=== PATIENT | female | born 1955 | race Caucasian/White ===

== ENCOUNTER 2019-02-10 10:39 | Day surgery (SDC) | payer BC ==
[~2019-02-10 10:39] MED LIST: ACETAMINOPHEN 1,000 MG/100 ML BTL IVPB ONE; CEFAZOLIN 2 Gram 2 GM/50 ML BAG IVPB ONE
[2019-02-10] MEDS ORDERED: NEOSTIGMINE 1 MG/1 ML,10ML VIAL IV ONE (10:40)
[2019-02-10] MEDS ORDERED: SEVOFLURANE 250 ML INH ONE (10:40)
[2019-02-10] MEDS ORDERED: ROCURONIUM BROMIDE 50MG/5ML VIAL IV ONE (10:40)
[2019-02-10] MEDS ORDERED: LIDOCAINE 2% MDV (20MG/ML) 20ML VIAL IV ONE (10:40)
[2019-02-10] MEDS ORDERED: MIDAZOLAM HCL 2MG/2ML VIAL IV ONE (10:40)
[2019-02-10] MEDS ORDERED: FENTANYL PF 100MCG/2ML VIAL IV ONE (10:40)
[2019-02-10] MEDS ORDERED: ONDANSETRON HCL IV 4 MG/2 ML VIAL IVP ONE (10:40)
[2019-02-10] MEDS ORDERED: GLYCOPYRROLATE 0.2 MG/ML ML IV ONE (10:40)
[2019-02-10] MEDS ORDERED: EPHEDRINE SULFATE 50 MG/ML ML IV ONE (10:40)
[2019-02-10] MEDS ORDERED: SUCCINYLCHOLINE 20 MG/ML 10ML IVP ONE (10:40)
[2019-02-10] MEDS ORDERED: DEXAMETHASONE 4 MG/ML 1ML VIAL IVP ONE (10:40)
[2019-02-10] MEDS ORDERED: PROPOFOL 10 MG/ML VIAL IV ONE (10:40)
[2019-02-10] MEDS ORDERED: RINGERS SOLUTION,LACTATED 1,000 ML IV ONE ×2 (11:10→14:00)
[2019-02-10] MEDS ORDERED: BUPIVACAINE 0.5% W/EPI MPF 30 ML VIAL SQ ONE (14:30)
[2019-02-10] MEDS ORDERED: BUPIVACAINE LIPOSOME 266MG/20ML VIAL SQ ONE (14:30)
[2019-02-10] MEDS ORDERED: EPINEPHRINE 1 MG/ML AMPUL SQ ONE (14:30)
[2019-02-10] MEDS ORDERED: HYDROMORPHONE HCL 2 MG/ML VIAL IM ONE (15:11)
[2019-02-10] MEDS ORDERED: HYDROCODONE/APAP 7.5/325MG TABLET PO ONE (15:46)
--- NOTE | 2019-02-11 07:28 | Operative Note ---
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 PARTIAL THICKNESS SURFACE TENDON TEAR AND FULL THICKNESS CARTILAGE DEFECT HUMERAL HEAD. OPERATION: 1. DIAGNOSTIC ARTHROSCOPY. 2. ARTHROSCOPIC DEBRIDEMENT OF A PARTIAL THICKNESS ROTATOR CUFF TEAR. 3. ARTHROSCOPIC DEBRIDEMENT OF MICROFRACTURE HUMERAL HEAD. 4. ARTHROSCOPIC ACROMIOPLASTY AND SUBACROMIAL DECOMPRESSION. 5. ARTHROSCOPIC EXCISION DISTAL CLAVICLE ACROMIOCLAVICULAR JOINT 1 CM. SURGEON: Bryce Fraga M.D. ANESTHESIA: General endotracheal. ANESTHESIA PROVIDER: OLIVE Cruz CRNA COMPLICATIONS: None. ESTIMATED BLOOD LOSS: Minimal. OPERATIVE FINDINGS: Grade 4 full thickness cartilage defect in the humeral head approximately 1.5 cm x 4 cm long area in the central superior portion of the humeral head. A slight partial articular surface tendon fraying involving only 10% with the tendon insertion. Acromioclavicular joint arthrosis, otherwise intact rotator cuff. INDICATIONS: This is a 63-year-old female who is well known to myself, she is status post right shoulder acromioplasty, excision distal clavicle, and microfracture of the humeral head defect and presented to the office with exactly the same symptoms deep joint line pain. We did an ultrasound which showed basically an intact rotator cuff. I suspected another humeral head cartilage defect and she would like to proceed with surgery. I explained the risks and benefits in detail for diagnosis and procedures, including, but not limited to infection, nerve injury, vessel injury, persistent pain, numbness and tingling in shoulder, the fact that if she has arthrosis in the shoulder this procedure will not cure that condition, she could require further procedures, and all of her questions were answered. Rehab course was outlined. She agreed to proceed. PROCEDURE: The patient was brought to the Operating Room, placed in the beach chair position and prepped for surgery. General endotracheal anesthesia was induced. Her left upper extremity and shoulder were prepped in sterile fashion. Her left shoulder was prepped again with ChloraPrep. It was draped. Intraoperative timeout was performed. Next, the glenohumeral joint and subacromial space and acromioclavicular joint were injected with 0.5% Marcaine with Epi. Standard posterior arthroscopic portable was established 2 cm inferior and 1 cm posterior lateral corner of the acromion. An anterior portal was established under direct visualization. Diagnostic arthroscopy was performed. The biceps tendon, biceps anchor and anterior superior labrum are normal. The posterior superior labrum is normal. The glenoid articular cartilage had some mild Grade 1 chondromalacia, otherwise normal. The humeral head with rotation did medially identify a full thickness Grade 4 cartilage lesion in the humeral head involving the central superior portion of the humeral head involving about 1.5 cm x 4 cm long area extending from posterior superior to anterior inferior. The remainder of the columns around the periphery was intact after probing. The undersurface of the rotator cuff was thoroughly inspected, she had a slight partial thickness fraying less than 10% of the rotator cuff, otherwise the articular surface is intact. The superior middle glenohumeral lengths are intact. The subscapularis tendon and subscapularis recess are normal and the anterior inferior labrum was normal. Next we inserted a shaver into the anterior portal to lightly debride the partial thickness fraying of the rotator cuff to a smooth stable surface. The remainder of the rotator cuff was lightly debrided and probed around the periphery to remove any loose cartilage fragments to the smooth stable surfaces of the cartilage defect. Next, we used chondral picks and performed microfracture in the usual fashion about 3-4 mm deep x 3-4 mm apart into the subchondral bone, stopped the inflow and had good bleeding back flow afterwards. Next, the anterior port and subacromial port was established. A tissue biter was inserted into the anterior subacromial port and subacromial bursectomy was performed outlining the anterior lateral edges of the acromiohumeral ligament completely opening up the inferior joint capsule. Next, the lateral port was established post marginalization with a 5.5 mm bur. The bur was inserted into the lateral portal and took off strips of bone from the lateral, medial, anterior and posterior from the Type 2 acromion to the plantar surface using a rasp to smooth subacromial surfaces and verified it was flat with the probe from the posterior portal. Next, we inserted the bur into the anterior portal, burred down the acromial facet and resected the distal clavicle 1 cm, made a small stab incision superiorly to the acromioclavicular joint, inserted the shaver there and smoothed both bony surfaces and verified the acromioclavicular joint was completely free of any bony impingement or bony fragments. Next, we thoroughly inspected the bursa and the rotator cuff was intact. This completed our procedure. The scope equipment was removed. The scope incisions were covered with Steri-Strips and covered with Xeroform gauze and a sterile dressing was applied and UltraSling and ice cooler wrap. The patient tolerated the procedure well. No intraoperative complications. Sponge, needle, and blade counts are correct. Recovery stable. Neurovascularly intact. She will discharged as an outpatient and follow-up with therapy and my office for microfracture program. JOB NUMBER: [id number] MTDD
== END 2019-02-10 16:12 | disposition home or self-care (01) ==
LOC: SUR 10:39
PROVIDERS: ATTEND Orthopaedic Surgery
DX: M75.102 Unspecified rotator cuff tear or rupture of left shoulder, not specified as traumatic (principal); M24.119 Other articular cartilage disorders, unspecified shoulder; J44.9 Chronic obstructive pulmonary disease, unspecified; Z86.73 Personal history of transient ischemic attack (TIA), and cerebral infarction without residual deficits
CPT/HCPCS: J0171; J0330; J2405; J2710; J7120